=== PATIENT | female | born 1955 | race Caucasian/White ===

== ENCOUNTER 2016-11-11 15:08 | Inpatient (IN) | payer OTHER ==
[~2016-11-11] VITALS: Ht 165.1 cm; Wt 57.6 kg
--- NOTE | 2016-11-11 15:17 | NUR ---
PT C/O ABDOMINAL PAIN SINCE THIS MORNING. PT DENIES N/V/D. 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 PT STATES PAIN RADIATES ACROSS THE MIDDLE OF HER BACK. STATES AT FIRST IT FELT LIKE A MAJOR GAS BUBBLE BUT THE PAIN IS CONSTANT
[2016-11-11 15:38] LABS: ABSOLUTE BASOPHIL COUNT 0 /CUMM (0.0-0.2); ABSOLUTE EOSINOPHIL COUNT 0.3 /CUMM (0.0-0.7); ABSOLUTE GRANULOCYTE CT 6.9 /CUMM (1.4-6.5); ABSOLUTE LYMPH COUNT 1.3 /CUMM (1.2-3.4); ABSOLUTE MONOCYTE COUNT 0.4 /CUMM (0.10-0.60); BASOPHIL % 0.3 % (0.0-2.0); EOSINOPHIL % 3.3 % (0-5); GRANULOCYTE % 76.8 % (42.2-75.2); HEMATOCRIT 40.3 % (37-47); MEAN CORPUSCULAR HGB 31.1 PG (27.0-31.0); MEAN CORPUSCULAR HGB CONC 33.5 G/DL (33.0-37.0); MEAN CORPUSCULAR VOLUME 92.8 FL (81.0-99.0); MEAN PLATELET VOLUME 7.8 FL (7.4-10.4); PLATELET COUNT 280 /CUMM (130-400); RBC DISTRIBUTION WIDTH 13.6 % (11.5-14.5); RED BLOOD CELL CT 4.34 /CUMM (4.20-5.40); WHITE BLOOD CELL COUNT 8.9 /CUMM (4.8-10.8)
--- NOTE | 2016-11-11 17:20 | ED GI/GU/ABDOMINAL COMPLAINT ---
History of Present Illness General Chief Complaint: Abdominal Pain/Flank Pain Stated Complaint: ABD PAIN SINCE THIS AM PER PT Source: patient, family Exam Limitations: no limitations Vital Signs & Intake/Output Vital Signs & Intake/Output Vital Signs Date Time Temp Pulse Resp B/P B/P Pulse O2 O2 Flow FiO2 Mean Ox Delivery Rate 11/13 0709 98.6 84 20 134/82 95 11/12 2347 99.2 77 18 140/80 96 Room Air ED Intake and Output 11/13 0000 11/12 1200 Intake Total 900 1000 Output Total 765 1450 Balance 135 -450 Intake, IV 900 1000 Intake, Oral 0 0 Output, 365 450 Gastric Drainage Output, Urine 400 1000 Allergies Coded Allergies: amoxicillin (RASH 11/11/16) Reconcile Medications No Known Home Medications Triage Note: PT C/O ABDOMINAL PAIN SINCE THIS MORNING. PT DENIES N/V/D. 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 PT STATES PAIN RADIATES ACROSS THE MIDDLE OF HER BACK. STATES AT FIRST IT FELT LIKE A MAJOR GAS BUBBLE BUT THE PAIN IS CONSTANT Triage Nurses Notes Reviewed? yes ? n Is pt currently ? No HPI: Patient is a 61 year old female presents complaining of severe abdominal pain. Pain onset this morning while patient was sitting at her desk. Pain is currently severe, diffuse abdomen. Last bowel movement was at 3 AM this morning. Patient has not taken any medication for her symptoms today. Patient normally has 2-3 bowel movements per day. Associated nausea, no vomiting. Patient denies fevers, chills. (NITESH HENSON) Past History Travel History Traveled to [place] past 21 day No Medical History Any Pertinent Medical History? see below for history Musculoskeletal: osteoarthritis Surgical History Surgical History: hysterectomy Psychosocial History What is your primary language Cook Islander Tobacco Use: Never used ETOH Use: occasional use Illicit Drug Use: denies illicit drug use Family History Hx Contributory? No (NITESH HENSON) Review of Systems Review of Systems Constitutional: Denies: chills, fever. EENTM: Reports: no symptoms. Respiratory: Denies: cough, short of breath. Cardiovascular: Denies: chest pain. GI: Reports: see HPI. Genitourinary: Reports: no symptoms. Musculoskeletal: Reports: no symptoms. Skin: Reports: no symptoms. Neurological/Psychological: Reports: no symptoms. Hematologic/Endocrine: Reports: no symptoms. Immunologic/Allergic: Reports: no symptoms. (NITESH HENSON) Physical Exam Physical Exam General Appearance: alert, awake Head: atraumatic, normal appearance Eyes: Bilateral: normal appearance, PERRL, EOMI. Ears, Nose, Throat, Mouth: hearing grossly normal, moist mucous membrane Neck: normal inspection, supple, full range of motion Respiratory: normal breath sounds, chest non-tender, no respiratory distress, lungs clear Cardiovascular: regular rate/rhythm Gastrointestinal: soft, hypoactive bowel sounds, diffuse tenderness Back: normal inspection, normal range of motion Extremities: normal range of motion Neurologic/Psych: no motor/sensory deficits, awake, alert, oriented x 3, normal mood/affect Skin: intact, normal color, warm/dry Core Measures ACS in differential dx? No Severe Sepsis Present: No Septic Shock Present: No (NITESH HENSON) Progress Differential Diagnosis: appendicitis, biliary colic, cholecystitis, diverticulitis, gastritis, hepatitis, hernia, ischemic bowel, inflamm bowel dis, kidney stone, perforated viscous, SBO, UTI/pyelo Plan of Care: Orders Procedure Date/time Status Discharge Patient 11/13 UNK Active Discontinue Nursing Interventi 11/13 UNK Active Laboratory Tests 11/13/16 0640: Anion Gap 11, Estimated GFR > 60, BUN/Creatinine Ratio 16.7, CBC w Diff NO MAN DIFF REQ, RBC 4.59, MCV 92.1, MCH 31.5 H, RDW 13.3, MPV 8.4, Gran % 86.2 H, Lymphocytes % 7.0 L, Monocytes % 6.8, Eosinophils % 0, Basophils % 0 L, Absolute Granulocytes 10.1 H, Absolute Lymphocytes 0.8 L, Absolute Monocytes 0.8 H, Absolute Eosinophils 0, Absolute Basophils 0, PUBS MCHC 34.3 Mild improvement after morphine and zofran. Results of labs and CT scan discussed with patient and her . Discussed with Dr. Tavarez: have tristen PA evaluate patient. NG tube placed by nurse. (NITESH HENSON) Diagnostic Imaging: Viewed by Me: CT Scan. Discussed w/RAD: CT Scan. Radiology Impression: PATIENT: RUMA OVALLES PRESENT AGE: 61 PATIENT ACCOUNT NO: [id number] : 55 LOCATION: [facility] ORDERING PHYSICIAN: NITESH TAYLOR SERVICE DATE: 11/11/16 EXAM TYPE: CAT - CT ABD & PELVIS W IV CONTRAST EXAMINATION: CT ABDOMEN AND PELVIS WITH CONTRAST CLINICAL INFORMATION: Severe diffuse abdominal pain. Evaluate for an intra-abdominal infection. COMPARISON: No relevant prior studies are available for comparison. TECHNIQUE: Multidetector volumetric imaging was performed of the abdomen and pelvis before and after the IV administration of 95 mL of Optiray 320 intravenous contrast. Sagittal and coronal reformatted images were obtained on the technologist's workstation. DLP: 291.70 mGy-cm FINDINGS: LUNG BASES: The visualized lung bases are unremarkable. LIVER, GALLBLADDER, AND BILIARY TREE: The liver is normal in size, shape, and attenuation. A lobulated 1.9 x 3.6 x 2.2 cm hypoenhancing hypodensity is noted within the dome of the liver. This could represent a hemangioma; however, a more aggressive pathology cannot be excluded. If there is persistent clinical concern, triphase CT or dedicated MR imaging of the liver could be considered to help further evaluate. No biliary ductal dilatation is present. There may be small stones versus polyps within the inferior aspect of the gallbladder. Right upper quadrant ultrasound could be considered to help further evaluate if clinically indicated. There is no gallbladder wall thickening or pericholecystic fluid to suggest acute cholecystitis. PANCREAS: Unremarkable. SPLEEN: Unremarkable. ADRENAL GLANDS: Unremarkable. KIDNEYS AND URETERS: The kidneys are normal in size, shape, and attenuation. No hydronephrosis, hydroureter, or calculi seen. No perinephric stranding. BLADDER: Nondistended. GASTROINTESTINAL TRACT: There is a small sliding-type hiatal hernia. There are prominent small bowel loops within the pelvis measuring up to 3 cm with associated fecalization and a probable transition point within the right hemipelvis on axial series 2 images 57-54/80 as well as axial series 602 images 41-30 7. There is collapse of the distal small bowel and colon. These findings could represent a high-grade versus complete small bowel obstruction. There is no intra-abdominal free air or free fluid. The appendix is normal. ABDOMINAL WALL: No significant hernia is appreciated. LYMPH NODES: Normal. VASCULAR: Contrast opacifies the abdominal aorta and its branch vessels. There is no abdominal aortic dilatation. The IVC is unremarkable. PELVIC VISCERA: Unremarkable. OSSEOUS STRUCTURES: There is no lytic or blastic osseous lesion. There are degenerative changes within the visualized lower thoracic and lumbar spine. There is mild retrolisthesis of L2 on L3 with severe degenerative disc disease and mild medial to lateral subluxation at this level. IMPRESSION: 1. Prominent small bowel loops measuring up to 3 cm with associated fecalization and probable transition point in the pelvis. Collapse of the distal small bowel and colon. These findings could represent a high-grade versus complete small bowel obstruction. No intra- abdominal free air or free fluid. 2. Lobulated hypodensity within the dome of the liver which could represent a hemangioma. More aggressive pathology cannot be excluded and if there is persistent clinical concern, dedicated liver imaging could be considered to help further characterize. 3. Stones versus polyps within the inferior aspect of the gallbladder. No pericholecystic free fluid or gallbladder wall thickening to suggest acute cholecystitis. Nonemergent right upper quadrant ultrasound could be considered to help further evaluate. These findings were discussed with BRANDON Jackson via telephone at 6:40 PM on . DICTATED BY: KEVIN MESSINA MD DATE/TIME DICTATED:11/11/161819 ACCOUNT MANAGER FOREST SERVICE:RONALD DATE/TIME TRANSCRIBED:11/11/161819 CONFIDENTIAL, DO NOT COPY WITHOUT APPROPRIATE AUTHORIZATION. <Electronically signed in Other Vendor System> SIGNED BY: KEVIN MESSINA MD 11/11/161849 Initial ED EKG: none (NITESH HENSON) Departure Departure Disposition: STILL A PATIENT Condition: Stable Clinical Impression Primary Impression: Small bowel obstruction Referrals: FADI MCLAIN MD (PCP/Family) Departure Forms: Customer Survey General Discharge Information Prescriptions: Current Visit Scripts No Known Home Medications Admission Note Spoke With: FABRICIO TAVAREZ MD Documentation of Exam: Documentation of any treatments & extenuating circumstances including Concerns Regarding Discharge (functional status, medication knowledge or non-compliance, living conditions, etc.) that warrant an admission rather than observation: NG tube, serial abdominal exams, IV fluids, repeat imaging. (NITESH HENSON) PA/CIRCUIT BOARD INSPECTOR Co-Sign Statement Statement: ED Attending supervision documentation- x I saw and evaluated the patient. I have also reviewed all the pertinent lab results and diagnostic results. I agree with the findings and the plan of care as documented in the PA's/CIRCUIT BOARD INSPECTOR's documentation. [] I have reviewed the ED Record and agree with the PA's/CIRCUIT BOARD INSPECTOR's documentation. [] Additions or exceptions (if any) to the PAs/CIRCUIT BOARD INSPECTOR's note and plan are summarized below: [] (ANA MENDEZ,KRYSTLE)
--- NOTE | 2016-11-11 17:53 | NUR ---
SEEN BY ER PA MEDICATED W/ ZOFRAN 4 MG AND MORPHINE 4 MG
--- NOTE | 2016-11-11 18:05 | NUR ---
TRANS TO CT SCAN
--- NOTE | 2016-11-11 18:42 | NUR ---
RE-EVAL BY STEFFI TAYLOR
--- NOTE | 2016-11-11 18:50 | CT SCAN REPORT ---
EXAMINATION: CT ABDOMEN AND PELVIS WITH CONTRAST CLINICAL INFORMATION: Severe diffuse abdominal pain. Evaluate for an intra-abdominal infection. COMPARISON: No relevant prior studies are available for comparison. TECHNIQUE: Multidetector volumetric imaging was performed of the abdomen and pelvis before and after the IV administration of 95 mL of Optiray 320 intravenous contrast. Sagittal and coronal reformatted images were obtained on the technologist's workstation. DLP: 291.70 mGy-cm FINDINGS: LUNG BASES: The visualized lung bases are unremarkable. LIVER, GALLBLADDER, AND BILIARY TREE: The liver is normal in size, shape, and attenuation. A lobulated 1.9 x 3.6 x 2.2 cm hypoenhancing hypodensity is noted within the dome of the liver. This could represent a hemangioma; however, a more aggressive pathology cannot be excluded. If there is persistent clinical concern, triphase CT or dedicated MR imaging of the liver could be considered to help further evaluate. No biliary ductal dilatation is present. There may be small stones versus polyps within the inferior aspect of the gallbladder. Right upper quadrant ultrasound could be considered to help further evaluate if clinically indicated. There is no gallbladder wall thickening or pericholecystic fluid to suggest acute cholecystitis. PANCREAS: Unremarkable. SPLEEN: Unremarkable. ADRENAL GLANDS: Unremarkable. KIDNEYS AND URETERS: The kidneys are normal in size, shape, and attenuation. No hydronephrosis, hydroureter, or calculi seen. No perinephric stranding. BLADDER: Nondistended. GASTROINTESTINAL TRACT: There is a small sliding-type hiatal hernia. There are prominent small bowel loops within the pelvis measuring up to 3 cm with associated fecalization and a probable transition point within the right hemipelvis on axial series 2 images 57-54/80 as well as axial series 602 images 41-30 . There is collapse of the distal small bowel and colon. These findings could represent a high-grade versus complete small bowel obstruction. There is no intra-abdominal free air or free fluid. The appendix is normal. ABDOMINAL WALL: No significant hernia is appreciated. LYMPH NODES: Normal. VASCULAR: Contrast opacifies the abdominal aorta and its branch vessels. There is no abdominal aortic dilatation. The IVC is unremarkable. PELVIC VISCERA: Unremarkable. OSSEOUS STRUCTURES: There is no lytic or blastic osseous lesion. There are degenerative changes within the visualized lower thoracic and lumbar spine. There is mild retrolisthesis of L2 on L3 with severe degenerative disc disease and mild medial to lateral subluxation at this level. IMPRESSION: 1. Prominent small bowel loops measuring up to 3 cm with associated fecalization and probable transition point in the pelvis. Collapse of the distal small bowel and colon. These findings could represent a high-grade versus complete small bowel obstruction. No intra-abdominal free air or free fluid. 2. Lobulated hypodensity within the dome of the liver which could represent a hemangioma. More aggressive pathology cannot be excluded and if there is persistent clinical concern, dedicated liver imaging could be considered to help further characterize. 3. Stones versus polyps within the inferior aspect of the gallbladder. No pericholecystic free fluid or gallbladder wall thickening to suggest acute cholecystitis. Nonemergent right upper quadrant ultrasound could be considered to help further evaluate. These findings were discussed with BRANDON Jackson via telephone at 6:40 PM on 11/11/2016.
--- NOTE | 2016-11-11 19:41 | NUR ---
EVAL BY SURG
--- NOTE | 2016-11-11 19:53 | Admission Core Measures ---
Admission Lab Results I reviewed the following labs: Laboratory Tests 11/11 11/11 1705 1529 Chemistry Sodium (137 - 145 mmol/L) 131 L Potassium (3.5 - 5.1 mmol/L) 4.0 Chloride (98 - 107 mmol/L) 95 L Carbon Dioxide (22 - 30 mmol/L) 26 Anion Gap (5 - 16) 10 BUN (7 - 17 mg/dL) 13 Creatinine (0.5 - 1.0 mg/dL) 0.8 Estimated GFR (>60 ml/min) > 60 BUN/Creatinine Ratio (7 - 25 %) 16.3 Glucose (65 - 99 mg/dL) 103 H Lactic Acid (0.7 - 2.1 mmol/L) 0.9 Calcium (8.4 - 10.2 mg/dL) 9.6 Total Bilirubin (0.2 - 1.3 mg/dL) 0.6 AST (14 - 36 U/L) 21 ALT (9 - 52 U/L) 38 Alkaline Phosphatase (<127 U/L) 83 Total Protein (6.3 - 8.2 g/dL) 7.2 Albumin (3.5 - 5.0 g/dL) 4.3 Globulin (1.9 - 4.2 gm/dL) 2.9 Albumin/Globulin Ratio (1.1 - 2.2 %) 1.5 Amylase (30 - 110 U/L) 82 Lipase (23 - 300 U/L) 219 Hematology CBC w Diff NO MAN DIFF REQ WBC (4.8 - 10.8 /CUMM) 8.9 RBC (4.20 - 5.40 /CUMM) 4.34 Hgb (12.0 - 16.0 G/DL) 13.5 Hct (37 - 47 %) 40.3 MCV (81.0 - 99.0 FL) 92.8 MCH (27.0 - 31.0 PG) 31.1 H RDW (11.5 - 14.5 %) 13.6 Plt Count (130 - 400 /CUMM) 280 MPV (7.4 - 10.4 FL) 7.8 Gran % (42.2 - 75.2 %) 76.8 H Lymphocytes % (20.5 - 51.1 %) 14.8 L Monocytes % (1.7 - 9.3 %) 4.8 Eosinophils % (0 - 5 %) 3.3 Basophils % (0.0 - 2.0 %) 0.3 Absolute Granulocytes (1.4 - 6.5 /CUMM) 6.9 H Absolute Lymphocytes (1.2 - 3.4 /CUMM) 1.3 Absolute Monocytes (0.10 - 0.60 /CUMM) 0.4 Absolute Eosinophils (0.0 - 0.7 /CUMM) 0.3 Absolute Basophils (0.0 - 0.2 /CUMM) 0 PUBS MCHC (33.0 - 37.0 G/DL) 33.5 Urines Urinalysis PACKD H Urine Color (YEL,AMB,STR) YEL Urine Clarity (CLEAR) CLDY H Urine pH (5.0 - 8.0) 8.0 Ur Specific [place] (1.001 - 1.035) 1.015 Urine Protein (NEG,<30 MG/DL) NEG Urine Ketones (NEG) 15 H Urine Nitrite (NEG) NEG Urine Bilirubin (NEG) NEG Urine Urobilinogen (0.1 - 1.0 EU/dl) 0.2 Ur Leukocyte Esterase (NEG) TRACE H Ur Microscopic SEDIMENT EXAMINED Urine RBC (0 - 5 /HPF) RARE Urine WBC (0 - 2 /HPF) 1-3 H Ur Epithelial Cells (NONE,FEW) RARE Urine Bacteria (NEG/NONE) FEW H Urine Mucus (FEW,NONE) RARE Urine Hemoglobin (NEG) NEG Urine Glucose (N MG/DL) NEG Admission Meds I reviewed the following Meds: Current Medications Sig/Gianna Start time Last Medication Dose Stop Time Status Admin Sodium Chloride 1,000 ML ONCE ONE 11/11 1900 AC (Normal Saline 0.9%) 11/12 0259 Acute Coronary Syndrome Inclusion Criteria ACS Diagnosis No Inpatient Core Measures LDL Reminder: If No, please order W/I first 24hr of stay Congestive Heart Failure Inclusion Criteria CHF Diagnosis No Cerebrovascular accident Inclusion Criteria CVA/TIA Diagnosis No Inpatient Core Measures Bedside Swallow Eval Reminder: If BSE failed, place ST order Antithrombotic Reminder: Order Antithrombotic Medication by end of day 2 Antithrombotic Reminder: Document Reason Antithrombotic Not ordered by end of day 2 AFIB/Flutter Reminder: If Present, add to problem list AFIB/Flutter Reminder: Order Anticoag Medication for pts with AFIB/Flutter Atherosclerosis Reminder: If Present, add to problem list LDL Reminder: If No, please order W/I first 24hr of stay PT Order Reminder: If No, please order Venous thromboembolism Inpatient Core Measures VTE Risk Factors: Age > 40 No Mech VTE prophylaxis d/t No contraindications No VTE Pharm Prophylaxis d/t No contraindications Inclusion Criteria - Per Current guidelines, there needs to be overlap - treatment for the first 5 days of Warfarin therapy. - Parenteral Anticoagulation (IV or SC) needs to be - given along with Warfarin therapy. VTE Diagnosis No VTE Type NONE VTE Confirmed by (Test) NONE Problem List As ranked by this Provider includes Assessment & Plan 1. Small bowel obstruction
--- NOTE | 2016-11-11 20:00 | NUR ---
18 FR KWAME DUMASP INSERTED W/O ISSUE ASCULTATED FOR PLACEMENT HOOKED TO LWS
--- NOTE | 2016-11-11 20:08 | History & Physical Pre-Op ---
General Information and [facility] MD Statement: I have seen and personally examined RUMA OVALLES and documented this H&P. The patient is a 61 year old F who presented with a patient stated chief complaint of abdominal pain since this morning. Source of Information: patient Exam Limitations: no limitations History of Present Illness: 61-year-old female with a previous surgical history of a total hysterectomy in 2004 presents to the emergency department this afternoon with complaints of abdominal pain and distention. The patient was seen she reports waking up this morning in her normal state of health. She had breakfast and part of lunch which she was tolerating but then developed sudden strong crampy generalized abdominal pain which progressively became worse and radiated towards her back. The patient also had increasing abdominal distention. She had no other complaints at the current time and denied any nausea/vomiting, fever/chills, or dysuria. The patient's last bowel movement was 5:30 this morning and regular in nature. Since this morning she has not had another bowel movement or passed flatus. The patient has not experienced this symptomatology in the past. Allergies/Medications Allergies: Coded Allergies: amoxicillin (RASH 11/11/16) Past History Medical History Musculoskeletal: osteoarthritis Surgical History Pertinent Surgical History: hysterectomy Past Family/Social History Psychosocial History Smoking Status: Never Smoked ETOH Use: occasional use Illicit Drug Use: denies illicit drug use Functional Ability ADLs Independent: dressing, eating, toileting, bathing. Ambulation: independent IADLs Independent: shopping, housework, finances, food prep, telephone, transportation , medication admin. Employment History Employment: Employed Profession/Employer: WORKS FOR [employer] Review of Systems Review of Systems Cardiovascular: Denies: chest pain, palpitations. Respiratory: Denies: cough, short of breath. GI: Denies: diarrhea, nausea, vomiting. Genitourinary: Denies: dysuria, frequency. Exam & Diagnostic Data Last 24 Hrs of Vital Signs/I&O Vital Signs Date Time Temp Pulse Resp B/P B/P Pulse O2 O2 Flow FiO2 Mean Ox Delivery Rate 11/11 1948 97.1 67 18 139/74 100 Room Air 11/11 1514 98.8 69 20 123/81 99 Room Air Intake & Output 11/11 1600 11/11 0800 11/11 0000 Intake Total Output Total Balance Patient 127 lb Weight Weight Reported by Patient Measurement Method Laboratory Tests 11/11 11/11 1705 1529 Chemistry Sodium (137 - 145 mmol/L) 131 L Potassium (3.5 - 5.1 mmol/L) 4.0 Chloride (98 - 107 mmol/L) 95 L Carbon Dioxide (22 - 30 mmol/L) 26 Anion Gap (5 - 16) 10 BUN (7 - 17 mg/dL) 13 Creatinine (0.5 - 1.0 mg/dL) 0.8 Estimated GFR (>60 ml/min) > 60 BUN/Creatinine Ratio (7 - 25 %) 16.3 Glucose (65 - 99 mg/dL) 103 H Lactic Acid (0.7 - 2.1 mmol/L) 0.9 Calcium (8.4 - 10.2 mg/dL) 9.6 Total Bilirubin (0.2 - 1.3 mg/dL) 0.6 AST (14 - 36 U/L) 21 ALT (9 - 52 U/L) 38 Alkaline Phosphatase (<127 U/L) 83 Total Protein (6.3 - 8.2 g/dL) 7.2 Albumin (3.5 - 5.0 g/dL) 4.3 Globulin (1.9 - 4.2 gm/dL) 2.9 Albumin/Globulin Ratio (1.1 - 2.2 %) 1.5 Amylase (30 - 110 U/L) 82 Lipase (23 - 300 U/L) 219 Hematology CBC w Diff NO MAN DIFF REQ WBC (4.8 - 10.8 /CUMM) 8.9 RBC (4.20 - 5.40 /CUMM) 4.34 Hgb (12.0 - 16.0 G/DL) 13.5 Hct (37 - 47 %) 40.3 MCV (81.0 - 99.0 FL) 92.8 MCH (27.0 - 31.0 PG) 31.1 H RDW (11.5 - 14.5 %) 13.6 Plt Count (130 - 400 /CUMM) 280 MPV (7.4 - 10.4 FL) 7.8 Gran % (42.2 - 75.2 %) 76.8 H Lymphocytes % (20.5 - 51.1 %) 14.8 L Monocytes % (1.7 - 9.3 %) 4.8 Eosinophils % (0 - 5 %) 3.3 Basophils % (0.0 - 2.0 %) 0.3 Absolute Granulocytes (1.4 - 6.5 /CUMM) 6.9 H Absolute Lymphocytes (1.2 - 3.4 /CUMM) 1.3 Absolute Monocytes (0.10 - 0.60 /CUMM) 0.4 Absolute Eosinophils (0.0 - 0.7 /CUMM) 0.3 Absolute Basophils (0.0 - 0.2 /CUMM) 0 PUBS MCHC (33.0 - 37.0 G/DL) 33.5 Urines Urinalysis PACKD H Urine Color (YEL,AMB,STR) YEL Urine Clarity (CLEAR) CLDY H Urine pH (5.0 - 8.0) 8.0 Ur Specific [place] (1.001 - 1.035) 1.015 Urine Protein (NEG,<30 MG/DL) NEG Urine Ketones (NEG) 15 H Urine Nitrite (NEG) NEG Urine Bilirubin (NEG) NEG Urine Urobilinogen (0.1 - 1.0 EU/dl) 0.2 Ur Leukocyte Esterase (NEG) TRACE H Ur Microscopic SEDIMENT EXAMINED Urine RBC (0 - 5 /HPF) RARE Urine WBC (0 - 2 /HPF) 1-3 H Ur Epithelial Cells (NONE,FEW) RARE Urine Bacteria (NEG/NONE) FEW H Urine Mucus (FEW,NONE) RARE Urine Hemoglobin (NEG) NEG Urine Glucose (N MG/DL) NEG CAT scan of the abdomen pelvis positive for a small bowel obstruction with a possible transition point in the pelvis. Physical Exam: Gen.: Alert and in no obvious distress Skin: Warm and dry without jaundice HEENT: Normocephalic and atraumatic, pupils are equal round reactive to light and accommodation Chest: Nontender with equal expansion Cardiac: S1-S2 regular Pulmonary: Bilateral breath sounds are equal with good exchange Abdomen: Softly distended, moderate generalized tenderness somewhat increased at the suprapubic area without rebound or guarding. Al sounds are positive and there are no appreciable hernias or masses palpated. Extremities: Bilateral lower extremities are warm without calf tenderness or significant edema. Assessment/Plan Assessment/Plan: Assessment: 61-year-old female presenting to the emergency department with a one -day history of abdominal pain and bloating. Workup was significant for a small bowel obstruction. Case was discussed with Ovi Tavarez MD. Plan: Admit patient Keep nothing by mouth with NG tube decompression and IV hydration PRN pain medication and antiemetic Follow-up morning laboratory studies and repeat an abdominal multiview Serial abdominal exams GI and DVT prophylaxis As Ranked By This Provider Problem List: 1. Small bowel obstruction
--- NOTE | 2016-11-11 20:42 | NUR ---
PT TO ROOM 209 BED 1
--- NOTE | 2016-11-11 20:54 | NUR ---
PATIENT NGT DRAINED APPROX 200 ML CLEAR FLUID ADDITIONAL 100 ML OF BRIGHT RED BLOOD DRAINAGE ER PA NOTIFIED PORT X-RAY PREFORMED PATIENT GIVEN PROTONIX 40 MG IVP W/IN 15 MIN NGT DRAINAGE RETURNED TO CLEAR VITAL SIGNS REMAIN STABLE
--- NOTE | 2016-11-11 21:15 | RADIOLOGY REPORT ---
EXAMINATION: XR PORTABLE ABDOMEN CLINICAL INFORMATION: NG tube placement COMPARISON: None TECHNIQUE: AP view of the abdomen. FINDINGS: NG tube catheter in stomach. The sidehole is just below the diaphragm. There is contrast in the renal collecting systems. IV contrast was injected for CAT scan performed today There is dilated small bowel loop in the left side of the abdomen IMPRESSION: Nasogastric tube in stomach.
--- NOTE | 2016-11-11 21:25 | NUR ---
PATIENT MEDICATED FOR PAin GIVEN DILAUDID 1 MG AND ZOFRAN 4 MG REPORT GIVEN TO FLOOR
[2016-11-11 22:34] VITALS: BP 128/76
[2016-11-12 06:35] VITALS: BP 130/82
--- NOTE | 2016-11-12 07:23 | PN- General Surgery ---
Subjective Subjective: The patient was seen this morning. She reports feeling more comfortable with less pain and bloating. She still has yet to pass flatus or have a bowel movement. She denies any nausea or burping and has no other complaints at the current time. Objective Vital Signs and I&Os Vital Signs Date Time Temp Pulse Resp B/P B/P Pulse O2 O2 Flow FiO2 Mean Ox Delivery Rate 11/12 0635 98.6 71 20 130/82 96 Room Air 11/11 2234 98.0 64 18 128/76 92 Room Air 11/11 2036 82 20 147/82 98 Room Air 11/11 1949 97.1 67 18 139/74 100 Room Air 11/11 1514 98.8 69 20 123/81 99 Room Air Intake & Output 11/12 0811/12 0000 11/11 1600 11/11 0811/11 0000 11/10 1600 Intake Total 0 1350 Output Total 1450 500 Balance -1450 850 Intake, IV 1350 Intake, Oral 0 0 Output, 450 500 Gastric Drainage Output, Urine 1000 Patient 127 lb 127 lb Weight Weight Reported by Patient Reported by Patient Measurement Method Physical Exam: Gen.: Alert and in no obvious distress Skin: Warm and dry Abdomen: Soft, less distended, nontender, bowel sounds positive. Extremities: Bilateral lower extremities are warm without calf tenderness or significant edema. Assessment/Plan Assessment/Plan Assessment: 61-year-old female being conservatively managed for a small bowel obstruction. The patient's pain and exam are improved since admission however she has had to have return of bowel function. Plan: Follow-up morning laboratory studies and abdominal multiview Continue nothing by mouth and NG tube decompression with IV hydration Decrease IV fluids GI and DVT prophylaxis PRN pain medications and antiemetics Out of bed ambulate Strict I's and O's Core Measures/Miscellaneous Venous Thromboembolism VTE Risk Factors: Age > 40 VTE Contraindications: No Contraindications No Pharm VTE Prophylaxis D/T: Active Bleeding (low risk) VTE Diagnosis: No VTE Type: NONE VTE Confirmed by (Test): NONE Beta Lester Is Beta Lester a Home Med? No Antibiotics Is Patient on Antibiotics? No
--- NOTE | 2016-11-12 08:12 | NUR ---
60 ML OF GASTROGRAFFIN WAS ADMINISTERED BY THIS RN AT 0810.
[2016-11-12 08:14] LABS: ABSOLUTE BASOPHIL COUNT 0 /CUMM (0.0-0.2); ABSOLUTE EOSINOPHIL COUNT 0 /CUMM (0.0-0.7); ABSOLUTE GRANULOCYTE CT 8.7 /CUMM (1.4-6.5); ABSOLUTE LYMPH COUNT 0.9 /CUMM (1.2-3.4); ABSOLUTE MONOCYTE COUNT 0.5 /CUMM (0.10-0.60); BASOPHIL % 0 % (0.0-2.0); EOSINOPHIL % 0.1 % (0-5); HEMATOCRIT 38.8 % (37-47); MEAN CORPUSCULAR HGB 31.7 PG (27.0-31.0); MEAN CORPUSCULAR HGB CONC 34.6 G/DL (33.0-37.0); MEAN CORPUSCULAR VOLUME 91.7 FL (81.0-99.0); MEAN PLATELET VOLUME 8.2 FL (7.4-10.4); PLATELET COUNT 262 /CUMM (130-400); RED BLOOD CELL CT 4.23 /CUMM (4.20-5.40); WHITE BLOOD CELL COUNT 10.1 /CUMM (4.8-10.8)
--- NOTE | 2016-11-12 08:35 | Patient Discharge Instructions ---
Discharge Instructions General Discharge Information You were seen/treated for: small bowel obstruction You had these procedures: nasogastric tube decompression Watch for these problems: fever>101.3, increased abdominal pain, nausea/vomiting, shortness of breath, chest pains Diet Continue normal diet: Yes Recommended Diet: Regular Additional DIET Information: advance as tolerated Activity Full Activity/No Limits: Yes Activity Self Limited: Yes Acute Coronary Syndrome Inclusion Criteria At DC or during hospital stay patient has or had the following: ACS DIAGNOSIS No Discharge Core Measures Meds if any: Prescribed or Continued at Discharge Meds if any: NOT Prescribed or Continued at Discharge Congestive Heart Failure Inclusion Criteria At DC or during hospital stay patient has or had the following: CHF DIAGNOSIS No Discharge Core Measures Meds if any: Prescribed or Continued at Discharge Meds if any: NOT Prescribed or Continued at Discharge Cerebrovascular accident Inclusion Criteria At DC or during hospital stay patient has or had the following: CVA/TIA Diagnosis No Discharge Core Measures Meds if any: Prescribed or Continued at Discharge Meds if any: NOT Prescribed or Continued at Discharge Venous thromboembolism Inclusion Criteria VTE Diagnosis No VTE Type NONE VTE Confirmed by (Test) NONE Discharge Core Measures - Per Current guidelines, there needs to be overlap - treatment for the first 5 days of Warfarin therapy. - If discharged on Warfarin prior to 5 days of - overlap therapy, the patient will need to be - assessed for post discharge needs including - *Post discharge parental anticoagulation - *Warfarin and/or parental anticoagulation education - *Follow up date to check INR post discharge At least 5 days overlap therapy as Inpatient No Meds if any: Prescribed or Continued at Discharge Note: Overlap Therapy is Warfarin and Anticoagulant Meds if any: NOT Prescribed or Continued at Discharge
[2016-11-12 08:58] LABS: GRANULOCYTE % 86.4 % (42.2-75.2)
--- NOTE | 2016-11-12 12:22 | RADIOLOGY REPORT ---
EXAMINATION: XR ABDOMEN MULTIPLE VIEWS CLINICAL INDICATION: Pain. Question obstruction. COMPARISON: None TECHNIQUE: 2 views FINDINGS: There is contrast within the stomach. NG tube tip overlies the gastric fundus. Air-fluid levels noted without any distended or thickened bowel loops grossly. There is no evidence of free air. No abnormal calcifications are seen IMPRESSION: Nonobstructive bowel gas pattern. Contrast within nondistended stomach. Findings suggest gastroparesis based on timing of contrast in retention of contrast.
--- NOTE | 2016-11-12 13:45 | NUR ---
PER SURGICAL PA IFEOMA JOHNSON LOW WALL SUCTION TO NG TUBE AND KEEP IT CLAMPED AT 0700. PER SURGICAL PA ZAIRA ASPIRATE RESIDUAL FROM NG TUBE. 65 ML RESIDUAL REPORTED TO SURGICAL PA ZAIRA; PER SURGICAL BRANDON MENESES KEEP NG TUBE CLAMPED. WILL CONTINUE TO MONITOR.
[2016-11-12 15:01] VITALS: BP 121/59
--- NOTE | 2016-11-12 18:03 | RADIOLOGY REPORT ---
EXAMINATION: XR PORTABLE ABDOMEN CLINICAL INFORMATION: Ileus versus small bowel obstruction. COMPARISON: Plain films of the abdomen 11/12/2016 at 11:56 AM. TECHNIQUE: AP view of the abdomen. FINDINGS: Single AP view of the abdomen were obtained 4 hours following an initial, similarly dated x-ray of the abdomen. There is some retained contrast within the gastric fundus. Contrast is also visualized within the distal duodenum as well as within loops of small bowel within the left hemiabdomen, which may correspond to loops of jejunum. There are persistently dilated, air-filled loops of bowel within the central abdomen, visualized measuring up to 3.7 cm in AP diameter; previously, up to 3.3 cm in diameter. A moderate amount of retained stool is identified within the cecum and ascending colon. There is a relative possibly of air within the rectum. No abnormal soft tissue calcifications. Severe degenerative changes of the left hip joint. Moderate degenerative changes of the right hip joint. IMPRESSION: Retained contrast is identified within the gastric fundus which is atypical for hours following ingestion of oral contrast. Oral contrast is also identified within loops of small bowel within the left hemiabdomen, likely corresponding to the jejunum. This constellation of findings is suggestive of delayed intestinal transit. There are persistently dilated air-filled loops of small bowel within the central abdomen, visualized measuring up to 3.7 cm in AP diameter. Cannot exclude a developing small bowel obstruction.
[2016-11-12 23:47] VITALS: BP 140/80
--- NOTE | 2016-11-13 06:58 | PN- General Surgery ---
Subjective Subjective: NO MAJOR COMPOLAINTS AT THIS THIME LESS DISTENDED THIS AM DENEIS FLATUS, NO BM Objective Vital Signs and I&Os Vital Signs Date Time Temp Pulse Resp B/P B/P Pulse O2 O2 Flow FiO2 Mean Ox Delivery Rate 11/12 2347 99.2 77 18 140/80 96 Room Air 11/12 1501 98.8 66 18 121/59 96 Room Air Intake & Output 11/13 0800 11/13 0000 11/12 1600 11/12 0800 11/12 0000 11/11 1600 Intake Total 133 444 4407 1350 Output Total 882 41 7676 500 Balance -400 535 -450 850 Intake, IV 297 221 1798 1350 Intake, Oral 0 0 0 Output, 300 65 450 500 Gastric Drainage Output, Urine 400 1000 Patient 127 lb 127 lb Weight Weight Reported by Patient Reported by Patient Measurement Method Physical Exam: CV: RRR LUNGS: CLEAR ABD: SOFT, MILD TENDERNESS TO PALP NO GUARDING HYPOACTIVE BS EXT: DISTAL CMS INTACT NGT: 250CC OVERNIGHT Assessment/Plan Assessment/Plan PERSISTENT BOWEL OBSTRUCTION PLAN PATINET SON IS GETTING TODAY AND IS INSISTENT UPON LEAVING SHE DISCUSSED THIS WITH DR CARSON AND WAS GIVBEN EXPLICIT INSTRUCTIONS REGUARDING WORSENING SYMPTOMS AND RETURNING TO THE ER IMMEDIATLEY SHE IS IN AGREEMENT Core Measures/Miscellaneous Venous Thromboembolism VTE Risk Factors: Age > 40 VTE Contraindications: No Contraindications No Pharm VTE Prophylaxis D/T: Active Bleeding (low risk) VTE Diagnosis: No VTE Type: NONE VTE Confirmed by (Test): NONE Beta Lester Is Beta Lester a Home Med? No Antibiotics Is Patient on Antibiotics? No
[2016-11-13 07:09] VITALS: BP 134/82
[2016-11-13 08:52] LABS: ABSOLUTE BASOPHIL COUNT 0 /CUMM (0.0-0.2); ABSOLUTE EOSINOPHIL COUNT 0 /CUMM (0.0-0.7); ABSOLUTE GRANULOCYTE CT 10.1 /CUMM (1.4-6.5); ABSOLUTE LYMPH COUNT 0.8 /CUMM (1.2-3.4); ABSOLUTE MONOCYTE COUNT 0.8 /CUMM (0.10-0.60); BASOPHIL % 0 % (0.0-2.0); EOSINOPHIL % 0 % (0-5); HEMATOCRIT 42.2 % (37-47); MEAN CORPUSCULAR HGB 31.5 PG (27.0-31.0); MEAN CORPUSCULAR HGB CONC 34.3 G/DL (33.0-37.0); MEAN CORPUSCULAR VOLUME 92.1 FL (81.0-99.0); MEAN PLATELET VOLUME 8.4 FL (7.4-10.4); PLATELET COUNT 284 /CUMM (130-400); RBC DISTRIBUTION WIDTH 13.3 % (11.5-14.5); RED BLOOD CELL CT 4.59 /CUMM (4.20-5.40); WHITE BLOOD CELL COUNT 11.7 /CUMM (4.8-10.8)
[2016-11-13 09:55] LABS: GRANULOCYTE % 86.2 % (42.2-75.2)
== END 2016-11-13 08:23 | DRG 390 ==
LOC: ERH 15:08 → ERHI 19:46 → 2NB 19:46 → ENRESERV 20:35 → 2NB 21:30
PROVIDERS: Emergency Medicine; Physician Assistant; Physician Assistant Surgical; ADMIT Surgery
DX: K56.60 Unspecified intestinal obstruction (principal)
CPT/HCPCS: 2NBSP; 36415; 74000; 74020; 74177; 81001; 82436; 87086; 93005; 93010; 96374; 96375; J2405; J2765; J7042